=== PATIENT | male | born 1950 | race Caucasian/White ===

== ENCOUNTER 2017-09-04 14:13 | Inpatient (IN) | payer MEDICARE, MEDICAID ==
[2017-09-04] VITALS (25 sets, daily range): BP systolic 72–125; BP diastolic 34–76
[~2017-09-04] VITALS: Ht 185.4 cm; Wt 74.6 kg
[~2017-09-04 14:13] MED LIST changes: -ASPI-484 PO; -ATOR20TA PO; -CLOP75TA52 PO; -LEVAQUIN 150 ML IV ONE; -MIRT15TA PO; -NS 1000ML 1,000 ML ONE; -SOTA80TA PO
--- NOTE | 2017-09-04 14:27 | NUR ---
ARRIVAL PATIENT ARRIVED TO ED4 VIA GURNEY BY [facility], EMS CALLED TO [facility] FOR ALOC AND LOW OXYGEN, ON THEIR ARRIVAL SAT IN THE 70'S, INITIATED A 20G IV TO LEFT FOREARM INFUSING NORMAL SALINE, BREATHING TREATMENT GOING ON ARRIVAL, NO DISTRESS NOTED
[2017-09-04 14:42] LABS: ABG PCO2 27.4 mmHg (35.0-45.0); ABG PH 7.441 (7.350-7.450); BE(B) -4.4 mmol/L (-2.0-2.0); HCO3act 18.2 mmol/L (22.0-26.0); pO2 50.5 mmHg (75.0-100.0)
--- NOTE | 2017-09-04 14:42 | PCM.EKG ---
[facility] Test Date: 2017-09-04 Test Time: 14:40:59 Pat Name: MOLINA BURK Department: Room: Gender: M Post Secondary Professional: RT : 1950 Requested By: PILI BULLOCK Order Number: [id number] Reading MD: Measurements Intervals [place] Rate: 108 P: CA: QRS: 110 QRSD: 66 T: 75 QT: 372 QTc: 498 Interpretive Statements Undetermined rhythm Otherwise normal ECG No previous ECG available for comparison Please click the below link to view image of tracing.
--- NOTE | 2017-09-04 14:45 | ER.PDOC ---
General Chief Complaint: Dyspnea/Respdistress Stated Complaint: ALOC Time seen by MD: 14:41 Source: EMS, senior care records Exam Limitations: clinical condition History of Present Illness Initial Comments Vomited last night and today having difficulty breathing and confusion. Character of AMS: disoriented, confused Context: senior care resident Usually: orientedx3 Associated Symptoms: trouble breathing Allergies: Coded Allergies: No Known Drug Allergies (Verified Allergy, Unknown, 06/27/16) Home Meds Reported Medications Sotalol Hcl (SOTALOL) 80 Mg Tablet, 1 TAB PO BID, #180 TAB 3 Refills 09/04/17 Mirtazapine (REMERON) 15 Mg Tablet, 1 TAB PO HS, #30 TAB 09/04/17 Clopidogrel Bisulfate (PLAVIX) 75 Mg Tablet, 1 TAB PO DAILY, #90 TAB 3 Refills 09/04/17 Atorvastatin 20MG (LIPITOR 20MG) 20 Mg Tablet, 1 TAB PO DAILY, #90 TAB 3 Refills 09/04/17 Aspirin (ASPIR 81) 81 Mg Tablet.dr, 1 TAB PO DAILY, #90 TAB 3 Refills 09/04/17 Thiamine Hcl (THIAMINE HCL) 100 Mg Tablet, 100 MG PO DAILY, TABLET 06/26/16 Folic Acid (FOLIC ACID) 1 Mg Tablet, 1 TAB PO DAILY, #90 TAB 1 Refill 06/26/16 Donepezil Hcl (DONEPEZIL HCL) 10 Mg Tablet, 1 TAB PO DAILY, #90 TAB 1 Refill 06/26/16 Cholestyramine/Aspartame (CHOLESTYRAMINE LIGHT PACKET) 4 Gm Packet, 4 GM PO DAILY, PACKET 06/26/16 Calcium Carbonate/Vitamin D3 (CALCIUM 500 + VIT D CAPLET) 1 Each Tablet, 1 EACH PO DAILY, TABLET 12/01/14 Primidone (PRIMIDONE) 250 Mg Tablet, 250 MG PO BID, TABLET 12/01/14 Levetiracetam (KEPPRA) 500 Mg Tablet, 500 MG PO TID, TABLET 12/01/14 Discontinued Reported Medications Quetiapine Fumarate (SEROQUEL) 50 Mg Tablet, 2 TAB PO HS, #30 TAB 2 Refills 06/26/16 Ferrous Sulfate (IRON) 325 Mg Capsule.er, 325 MG PO DAILY 06/26/16 Duloxetine Hcl (CYMBALTA) 30 Mg Capsule.dr, 1 CAP PO DAILY, #30 CAP 5 Refills 06/26/16 Lorazepam (ATIVAN) 0.5 Mg Tablet, 0.5 MG PO Q4 Y for ANXIETY, TABLET 12/01/14 Past Medical History Medical History: cardiac problems, high cholesterol, hypertension Surgical History: no surgical history Review of Systems Constitutional: no symptoms reported Ears, Nose, Mouth, Throat: no symptoms reported Respiratory: see HPI Cardiovascular: no symptoms reported Gastrointestinal: no symptoms reported Psychiatric/Neurological: see HPI All Other Systems: Reviewed and Negative Physical Exam General Appearance: alert, no distress HEENT: no apparent trauma, EOM's intact, no nystagmus, PERRL, ENT inspection nml, pharynx nml, airway intact Neuro/Psych: disoriented to place, disoriented to time Cranial Nerves: nml as tested Peripheral Exam: motor nml, sensation nml, reflexes nml Neck: supple, non-tender, no carotid bruit Respiratory: rales CVS: reg rate & rhythm, heart sounds nml Abdomen: non-tender, no organomegaly, no distention Skin: color nml, no rash, warm/dry Extremities: non-tender, nml ROM, no pedal edema Results/Orders Results/Orders Laboratory Tests Test 09/04/17 14:31 09/04/17 14:38 09/04/17 15:15 09/04/17 15:35 Blood Gas Sample Site RT RADIAL ARTERY Blood Gas pH 7.441 (7.350-7.450) Blood Gas PCO2 27.4 mmHg (35.0-45.0) Blood Gas PO2 50.5 mmHg (75.0-100.0) Blood Gas HCO3 18.2 mmol/L (22.0-26.0) Blood Gas Base Excess -4.4 mmol/L (-2.0-2.0) Douglas Test POSITIVE Arterial Blood Oxygen Saturation 85.6 % (95-) Deoxyhemoglobin 14.2 % (0.2-0.6) Carboxyhemoglobin 1.2 % (0.5-1.5) Methemoglobin 0.4 % (0.2-0.6) Total Hemoglobin 13.9 % (13.5-17.5) Total Oxygen Concentration 16.4 % (13.5-17.5) Lactic Acid (Blood Gas) 2.2 MMOL/L (0.5-1.0) Blood Gas Temperature 37 FiO2 36 % (20-101) Bicarbonate 19.1 mmol/L (23-27) White Blood Count 11.0 10^3/uL (4.5-11.0) Red Blood Count 3.41 10^6/uL (4.50-5.90) Hemoglobin 12.2 g/dL (13.9-16.3) Hematocrit 36.2 % (37.0-53.0) Mean Corpuscular Volume 106.2 fL (78-100) Mean Corpuscular Hemoglobin 35.8 pg (26-34) Mean Corpuscular Hemoglobin Concent 33.7 g/dL (33-37) Red Cell Distribution Width 13.1 % (11.5-14.5) Platelet Count 226 10^3/uL (150-400) Mean Platelet Volume 9.1 fL (7.8-11.0) Neutrophils (%) (Auto) 77.2 % (41.0-85.0) Lymphocytes (%) (Auto) 20.1 % (24.0-44.0) Monocytes (%) (Auto) 2.1 % (5.0-12.0) Neutrophils # (Auto) 8.5 10^3/uL (1.8-7.7) Lymphocytes # (Auto) 2.2 10^3/uL (1.0-4.8) Monocytes # (Auto) 0.2 10^3/uL (0.3-0.8) Absolute Immature Granulocyte (auto 0.04 10^3 u/L (0-2) Eosinophils % 0.0 % (0.0-5.0) Basophils % 0.2 % (0.0-0.2) Basophils # 0.0 10^3/uL (0.0-0.1) Eosinophil Count 0.0 10^3/uL (0.0-0.2) D-Dimer 3.40 mg/L (0.19-0.49) Percent Immature Gran (Cell Imm) 0.40 % (0.00-0.50) Sodium Level 135 mmol/L (132-145) Potassium Level 4.4 mmol/L (3.6-5.2) Chloride Level 101.0 mmol/L (96-109) Carbon Dioxide Level 21.9 mmol/L (20.0-32) Anion Gap 16.5 Blood Urea Nitrogen 21 mg/dL (7-18) Creatinine 2.33 mg/dL (0.59-1.40) Estimated GFR () 34.2 (>/=60) BUN/Creatinine Ratio 9.0 Glucose Level 91 mg/dL (70-110) Calcium Level 8.3 mg/dL (8.4-10.5) Total Bilirubin 0.5 mg/dL (0.2-1.0) Aspartate Amino Transf (AST/SGOT) 64 U/L (0-35) Alanine Aminotransferase (ALT/SGPT) 38 U/L (12-78) Alkaline Phosphatase 81 U/L (50-136) Total Creatine Kinase 1445 U/L (39-308) Creatine Kinase MB 1.4 ng/mL (0.5-3.6) Troponin I 0.03 ng/mL (0.00-0.05) Pro-B-Type Natriuretic Peptide 7421 pg/mL (0-125) Total Protein 7.3 g/dL (6.4-8.2) Albumin 2.6 g/dL (3.4-5.0) Globulin 4.7 Differential Total Cells Counted 100 #CELLS Segmented Neutrophils 35 % (31-76) Band Neutrophils 36 % (2-6) Lymphocytes 25 % (25-36) Monocytes 4 % (3-9) Platelet Estimate ADEQUATE Platelet Morphology NORMAL Test 09/04/17 15:37 09/04/17 16:41 Influenza Virus Type A Antibody NEGATIVE (NEG) Influenza Virus Type B Antibody NEGATIVE (NEG) Prothrombin Time 10.4 SEC (9.8-11.9) Prothrombin Time INR (Non-Therap) 1.0 Activated Partial Thromboplast Time 30.5 SEC (24.67-30.72) Administered Medications Medications (Trade) Dose Ordered Sig/Edwin Route PRN Reason Start Time Stop Time Status Last Admin Dose Admin Sodium Chloride 1,000 ml @ 1,200 mls/hr Q50M STAT IV 09/04/17 15:19 09/04/17 16:08 DC 09/04/17 15:20 EKG/XRAY/CT/US EKG: NSR (sinus tachycardia) XRAY: chest (Right airspace disease) Departure Time of Disposition: 17:12 Disposition: 09 ADMITTED INPATIENT Impression: Primary Impression: Acute respiratory failure Additional Impressions: Sepsis Pneumonia Condition: Critical Referrals: BHAVNA GRIMES MD (PCP) PRIMARY CARE PROVIDER Comments Admitted to Dr. Bustamante Duration or Time Spent with Pa: 120 mins Critical Care Note Total Time (mins): 120 Problem Qualifiers Primary Impression: Acute respiratory failure Respiratory failure complication: hypoxia Qualified Codes: J96.01 - Acute respiratory failure with hypoxia Additional Impressions: Sepsis Sepsis type: sepsis due to unspecified organism Qualified Codes: A41.9 - Sepsis, unspecified organism Pneumonia Pneumonia type: due to unspecified organism Laterality: right Lung location : unspecified part of lung Qualified Codes: J18.9 - Pneumonia, unspecified organism ARA,PILI Clark MD Sep 04, 2017 14:44
--- NOTE | 2017-09-04 14:45 | NUR ---
NORMAL SALINE NORMAL SALINE BOLUS INITIATED BY EMS FINISHED AT THIS TIME.
--- NOTE | 2017-09-04 14:47 | NUR ---
CAT SCAN PATIENT TO CAT SCAN VIA GURALICE IRENE FROM RADIOLOGY.
[2017-09-04 14:56] LABS: BASOPHIL % 0.2 % (0.0-0.2); HEMOGLOBIN 12.2 g/dL (13.9-16.3); LYMPHOCYTES # 2.2 10^3/uL (1.0-4.8); LYMPHOCYTES % 20.1 % (24.0-44.0); MEAN CELL HGB 35.8 pg (26-34); MEAN CELL HGB CONCENTRATION 33.7 g/dL (33-37); MEAN CORP VOLUME 106.2 fL (78-100); MEAN PLATELET VOLUME 9.1 fL (7.8-11.0); MONOCYTES # 0.2 10^3/uL (0.3-0.8); MONOCYTES % 2.1 % (5.0-12.0); NEUTROPHIL # 8.5 10^3/uL (1.8-7.7); NEUTROPHILS % 77.2 % (41.0-85.0); RED CELL DISTRIBUTION WIDTH 13.1 % (11.5-14.5)
--- NOTE | 2017-09-04 15:11 | NUR ---
CAT SCAN PATIENT BACK FROM CAT SCAN.
[2017-09-04] MEDS ORDERED: NS 1000ML 1,000 ML ONE (15:13)
[2017-09-04] MEDS ORDERED: NS 1000ML 1,000 ML IV STA ×2 (15:19→17:16)
[2017-09-04 15:21] LABS: CALCIUM 8.3 mg/dL (8.4-10.5); CARBON DIOXIDE 21.9 mmol/L (20.0-32)
[2017-09-04] MEDS ORDERED: CLOP75TA52 PO (15:26)
[2017-09-04] MEDS ORDERED: MIRT15TA PO (15:26)
[2017-09-04] MEDS ORDERED: ASPI-484 PO (15:26)
[2017-09-04] MEDS ORDERED: ATOR20TA PO (15:26)
[2017-09-04] MEDS ORDERED: SOTA80TA PO (15:26)
[2017-09-04 15:35] LABS: BAND NEUTROPHILS 36 % (2-6); LYMPHOCYTE 25 % (25-36); MONOCYTE 4 % (3-9); SEGMENTED NEUTROPHILS 35 % (31-76)
--- NOTE | 2017-09-04 15:36 | DIREP ---
PROCEDURE:CT HEAD OR BRAIN W/O CONTRAST COMPARISON:[facility], CT, CT HEAD BRAIN W/O CONTRAST, 06/25/2016, 11:16 PM. INDICATIONS:AMS TECHNIQUE:CT images were created without intravenous contrast. FINDINGS: VENTRICLES:The ventricles are normal in size and configuration. CEREBRUM:Within the right frontal lobe there is a focal area demonstrating loss of perez-white differentiation either related to volume averaging through sulcus or cortical infarction. Encephalomalacia noted in the bifrontal region is well as anterior left temporal lobe stable from prior. CEREBELLUM:Negative. BRAINSTEM:Negative. BASAL CISTERNS:Negative. HEMORRHAGE:No MASS LESION:No ACUTE INFARCT:No SKULL:Normal. SINUSES:Left maxillary sinus partially visualized with mucosal thickening and/or fluid. Mucosal thickening sphenoid sinus. OTHER:Intracranial carotid siphon atherosclerotic calcifications. CONCLUSION: 1. Probable artifact involving the right frontal cortex, less likely this reflects cortical stroke. MRI of the brain could be obtained to differentiate. 2. 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 3. No intracranial hemorrhage. 4. Paranasal sinus disease. Dictated by: Johnson Quiñonez M.D. on 09/04/2017 at 03:31 PM
--- NOTE | 2017-09-04 15:47 | DIREP ---
PROCEDURE:CHEST 1 VIEW COMPARISON:[facility], CR, XRAY CHEST SINGLE VW, 06/25/2016, 10:23 PM. INDICATIONS:Dyspnea FINDINGS: LUNGS/PLEURA:Patchy airspace disease noted in the right lung base. Background of interstitial scarring noted. VASCULATURE:Normal. Unremarkable pulmonary vasculature. CARDIAC:Normal. No cardiac silhouette abnormality or cardiomegaly. MEDIASTINUM:Normal. No visible mass or adenopathy. BONES:Normal. No fracture or visible bony lesion. OTHER:Negative. CONCLUSION: 1. Right basilar airspace disease. 2. Interstitial scarring in the lungs. Dictated by: Johnson Quiñonez M.D. on 09/04/2017 at 03:45 PM
--- NOTE | 2017-09-04 16:31 | NUR ---
RAMIREZ DOCTOR ARA DISCUSSING PATIENT CARE WITH DOCTOR GUZMÁN
--- NOTE | 2017-09-04 16:58 | NUR ---
[facility] NURSING STAFF TO PATIENTS ROOM, PATIENT REFUSED CATHETER, DOCTOR ARA TO ROOM AND PATIENT CONTINUED TO REFUSED CATHETER, DOCTOR ARA STATES JUST DOCUMENT IN THE CHART.
--- NOTE | 2017-09-04 17:15 | PRM.ACF1 ---
Date and Time Date and Time Time: 17:15 Admission Criteria Forms RESPIRATORY FAILURE GRG ( Place 'X' for any and all applicable criteria): Hospital admission is needed for appropriate care of the patient because of acute respiratory failure or insufficiency as indicated by 1 or more of the following (1)(2)(3)(4)(5)(6)(7)(8 ): [ ]I. Mechanical ventilation needed (acute invasive or noninvasive) [ ]II. Severe ventilation deficit as indicated by 1 or more of the following ( 9) [ ]a) Uncompensated Respiratory acidosis (pH < 7.35 and PaCO2 > 40 mmHg (5.3 kPa)) [ ]b) Airflow measurements < 25% of predicted (eg, PEFR < 100 L/min) [ ]c) FVC < 15 mL/kg of ideal body weight, or 50% decrease in vital capacity from baseline [ ]III. Noncardiac pulmonary edema not resolving with rapid emergency treatment (8) [ ]IV. Severe respiratory distress as indicated by 1 or more of the following: [ ]a) Severe tachypnea (respiratory rate greater than 30, greater than 45 for 6-month-old, greater than 60 for ) [x ]b) Severe hypoxemia (partial pressure of oxygen less than 50 mm Hg (6.7 kPa) on greater than 50% oxygen or partial pressure of oxygen to FIO2 ratio less than 200) [ ]c) Mental status deterioration from respiratory disease [ ]V. Airway obstruction or inadequate protection [A](10)(11) The original [employer] content created by [employer] has been revised. The portions of the content which have been revised are identified through the use of italic text, and [employer] has neither reviewed nor approved the modified material. All other unmodified content is copyright [employer]. Please see references footnoted in the original [employer] edition 2014 PILI BULLOCK MD Sep 04, 2017 17:15
--- NOTE | 2017-09-04 17:15 | NUR ---
sister SISTER LIVES IN [place] AND LEFT NUMBER
[2017-09-04] MEDS ORDERED: LEVAQUIN 150 ML IV STA (17:16)
--- NOTE | 2017-09-04 17:35 | NUR ---
Arrival Patient arrived on unit via stretcher to ICU 4. Report received from DENIS Sabillon. Assumed care of patient. Offered patient fluids and snacks. Educated patient on use of call light, pt returned demonstration. Will continue to monitor. Call light within reach.
--- NOTE | 2017-09-04 17:58 | NUR ---
Temperature Notified Dr. Bustamante of patients temperature of 100.8. New order received.
--- NOTE | 2017-09-04 18:22 | NUR ---
Dr. Robby Bustamante at bedside. New orders received.
[2017-09-04] MEDS: NS 1000ML 1,000 ML IV SCH ×2 (18:30→22:41)
[2017-09-04] MEDS ORDERED: ZOFRAN IV PRN (18:30)
[2017-09-04] MEDS ORDERED: DILAUDID IV PRN (18:30)
[2017-09-04] MEDS ORDERED: VENTOLIN IH PRN (18:30)
--- NOTE | 2017-09-04 18:45 | NUR ---
Received bedside report from AM nurse. Assumed care.
[2017-09-04] MEDS: LOVENOX SQ SCH (18:54)
[2017-09-04] MEDS: NICOTINE 14MG PATCH TD SCH (18:54)
[2017-09-04] MEDS: TYLENOL PO PRN (18:55)
--- NOTE | 2017-09-04 19:20 | NUR ---
Pt has not urinated since arriving to hospital. Pt denies the need to urinate. Pt agreed to try to pee. Assisted pt with urinal. After 30 seconds or so pt asked "what are we doing?" I reminded the pt he was trying to pee. Pt states "I don't have to pee." Pt refuses to allow me to remove his brief. Will continue to monitor.
--- NOTE | 2017-09-04 19:30 | NUR ---
Bed alarm turned on.
--- NOTE | 2017-09-04 20:00 | NUR ---
Initial assessment complete as charted. Pt only oriented to self. Pt does not under why he cannot get in his w/c and go outside to smoke. Pt can not understand that he cannot have another blanket because he has a fever. Pt very upset about this. O2 @ 2LNC. Lungs sound course throughout. Pt coughed a small amount of thick clear sputum into a Kleenex. Pt making a humming sound with exhaling. Pt stops the humming when he talks or sees someone in the room. Pt has not urinated since arriving on the unit. Pt refuses to use urinal and refuses to have a guerrero cath inserted. BS active X4. Pt cannot tell me when his LBM was. Pt has a brief on and refuses to allow me to remove it. IV to L FA 20gg unremarkable with NS @ 125mL/hr infusing. Pt denies pain and needs. Call light within reach.
--- NOTE | 2017-09-04 20:54 | NUR ---
RT in room to draw ABG.
--- NOTE | 2017-09-04 21:00 | NUR ---
Pt denies the need to urinate. Pt refuses to try to pee. Pt refuses to have a guerrero cath inserted. Asked him why he did not want it, he responded "I just don't." I explained exactly what a guerrero was. Pt states "No way." Will continue to monitor. Call light within reach.
[2017-09-04 21:02] LABS: ABG PCO2 24.7 mmHg (35.0-45.0); ABG PH 7.449 (7.350-7.450); BE(B) -5.7 mmol/L (-2.0-2.0); HCO3act 16.7 mmol/L (22.0-26.0); pO2 59.8 mmHg (75.0-100.0)
--- NOTE | 2017-09-04 21:06 | NUR ---
ABG results called to Dr Maria (covering for Dr Bustamante). Also reported trend of low BP. RBTO to given NS bolus now and he will come and see the pt.
[2017-09-04] MEDS: DUONEB 0.5 MG-3 MG/3 ML SOLN IH SCH (21:13)
--- NOTE | 2017-09-04 21:22 | NUR ---
NS bolus started to L FA 20gg. IV site unremarkable.
[2017-09-04] MEDS ORDERED: NS 1000ML 1,000 ML IV ONE (21:30)
--- NOTE | 2017-09-04 21:38 | NUR ---
Dr Maria at bedside. New orders received.
--- NOTE | 2017-09-04 21:43 | NUR ---
Pt denies the need to urinate to Dr Maria. Pt refuses guerrero cath to Dr Maria.
[2017-09-04] MEDS: PEPCID IV SCH (21:58)
--- NOTE | 2017-09-04 22:10 | NUR ---
Lab in room.
[2017-09-04 22:30] LABS: CALCIUM 7.6 mg/dL (8.4-10.5); CARBON DIOXIDE 20.9 mmol/L (20.0-32)
--- NOTE | 2017-09-04 22:42 | NUR ---
Pt attempted to eat a criss cracker and became choked. Pt vomited approx 100mL. I used yonker connected to suction everything out of pt's mouth. Complete linen change and partial bed bath done. Pt still refuses guerrero cath insertion. Pt denies pain and other needs. Call light within reach.
--- NOTE | 2017-09-04 23:15 | NUR ---
Dr Maria called with lab results and that RR has increased to 28-34 and lungs sound wet compared initial assessment. RBTO to order a stat CK on blood in lab. And to call him with that result and if any other change in pt condition.
[2017-09-05] VITALS (97 sets, daily range): BP systolic 86–174; BP diastolic 42–108
--- NOTE | 2017-09-05 00:08 | NUR ---
Dr Maria called about CK = 1089. No new orders. Dr Maria states he has given Dr Bustamante an update on the pt and Dr Bustamante will be taking back over.
--- NOTE | 2017-09-05 01:26 | NUR ---
Pt removed O2 sat monitor off of his finger stating "I'm going outside to smoke." Reminded the pt he was in [facility] in the ICU. Pt began yelling and cussing at me. I told him no he will not yell and cuss at me. Replaced O2 sat probe to finger. Pt denies pain and other needs. As I was walking out of the room the pt yelled "Fuck you!" Call light within reach.
--- NOTE | 2017-09-05 01:31 | NUR ---
O2 sat = 85% on 4LNC. Good pleth noted on monitor. Applied new O2 sat probe to a different finger. Again good pleth with O2 sat 85%. Repositioned pt in bed. No change. Called RT. Will continue to monitor.
--- NOTE | 2017-09-05 01:41 | NUR ---
RT at bedside.
--- NOTE | 2017-09-05 01:57 | NUR ---
RT humidified O2, increased pt to 6LNC and changed out O2 sensor cable. O2 sat = 90%. Will continue to monitor.
--- NOTE | 2017-09-05 02:34 | NUR ---
Pt laying in bed awake. Pt denies the need to use urinal and refuses to have Unger cath inserted. Pt states " I will pee in my diaper when I'm ready." Pt denies pain and needs. Call light within reach. Bed alarm on.
--- NOTE | 2017-09-05 03:25 | NUR ---
RT and lab in room to draw blood.
--- NOTE | 2017-09-05 03:40 | NUR ---
Pt laying in bed awake making a very loud noise. It sounded like he was clearing his throat and growling. I asked the pt is I needed to suck something out of his mouth. The pt says no he's fine. I ask what that noise is that he is making. Pt sates "I'm talking." Pt denies pain and needs. Call light within reach.
[2017-09-05 03:44] LABS: BASOPHIL % 0.2 % (0.0-0.2); EOSINOPHIL % 0.1 % (0.0-5.0); HEMOGLOBIN 10.9 g/dL (13.9-16.3); LYMPHOCYTES % 24.8 % (24.0-44.0); MEAN CELL HGB 36.8 pg (26-34); MEAN CELL HGB CONCENTRATION 34.2 g/dL (33-37); MEAN CORP VOLUME 107.8 fL (78-100); MEAN PLATELET VOLUME 9.4 fL (7.8-11.0); MONOCYTES # 0.1 10^3/uL (0.3-0.8); MONOCYTES % 1.7 % (5.0-12.0); NEUTROPHIL # 5.9 10^3/uL (1.8-7.7); RED CELL DISTRIBUTION WIDTH 13.6 % (11.5-14.5)
[2017-09-05] MEDS: DUONEB 0.5 MG-3 MG/3 ML SOLN IH SCH ×4 (03:44→21:27)
--- NOTE | 2017-09-05 03:52 | NUR ---
Pt yelling "Get out of here! Go away! I said get the fuck out!" I went in the room and asked if the pt was okay. Pt states "Turn off my TV and tell that bitch to get out and leave me alone." I explained to the pt that his TV was off and the only people in his room were he and I. Pt yelled at me " You're lying. She's right there (pointing at wall at end of bed). And turn off my TV." I turned TV on and then back off so pt could see the difference. Pt agreed that the TV was now off. But he was convinced there was a woman at the end of his bed talking to him. He wanted her out. I spoke to nothing and said "please get out of Mr Alfaro' room." Pt moved his head like he was watching someone walk out of the room then turned to me and said "Thank you." Pt denies pain and needs, Call light within reach.
[2017-09-05 04:09] LABS: CALCIUM 7.9 mg/dL (8.4-10.5); CARBON DIOXIDE 17.6 mmol/L (20.0-32)
--- NOTE | 2017-09-05 04:20 | NUR ---
Pt denies the need to use urinal. Bladder not distended when palpitated. Pt refuses to have guerrero cath inserted. Pt denies pain and needs. Call light within reach.
--- NOTE | 2017-09-05 05:12 | NUR ---
Pt laying in bed yelling. When asked what he needed pt states "I need new underwears. I peed in these." Pt started pulling brief off. I told pt just a minute let me get supplies. Pt says okay.
--- NOTE | 2017-09-05 05:20 | NUR ---
Urine is tea colored and has a foul smell to it.
[2017-09-05] MEDS: NS 1000ML 1,000 ML IV SCH ×3 (05:39→20:55)
--- NOTE | 2017-09-05 05:51 | NUR ---
Pt ended up getting a bed bath with a complete linen and gown change. Pt was incontinent while I was rolling him in bed. Pt demanded a brief be put on him. Pedi urine collection bag placed around penis. UA still needs to be collected. Pt refused to have HOB elevated. Pt denies pain and needs. Call light within reach. Bed alarm on.
--- NOTE | 2017-09-05 06:52 | NUR ---
Report given to AM nurse. Relinquished care.
--- NOTE | 2017-09-05 06:53 | NUR ---
REPORT RECEIVED FROM EVELYNE BARRIOS. ASSUMED CARE OF PATIENT.
[2017-09-05 07:04] LABS: BAND NEUTROPHILS 19 % (2-6); BASOPHIL 1 % (0-2); EOSINOPHIL 1 % (1-4); LYMPHOCYTE 24 % (25-36); MONOCYTE 4 % (3-9); SEGMENTED NEUTROPHILS 51 % (31-76)
[2017-09-05 07:05] LABS: TOXIC GRANULATION 2+ (NEGATIVE)
--- NOTE | 2017-09-05 08:05 | NUR ---
PATIENT SAT UP TO EAT BREAKFAST. UNABLE TO TOLERATE. EXPECTORATED PROFUSE AMOUNTS OF YELLOW FOAMY PHLEGM. 02 SAT% DROPPED TO 78%. FEEDING DISCONTINUED. PATIENT SUCTIONED AND CLEANED. O2 SAT% INCREASED TO 88%.
--- NOTE | 2017-09-05 08:10 | NUR ---
PATIENT REPORTS WET BRIEF. BRIEF CHANGED AND PATIENT CLEANED WITH PAD AND GOWN CHANGE.
[2017-09-05 08:16] LABS: BILIRUBIN,URINE NEGATIVE (NEGATIVE); UROBILINOGEN,URINE NORMAL (NEGATIVE)
[2017-09-05] MEDS: NICOTINE 14MG PATCH TD SCH (08:34)
[2017-09-05] MEDS: PEPCID IV SCH ×2 (08:34→20:57)
[2017-09-05 08:55] LABS: UA COLOR YELLOW (YELLOW)
[2017-09-05 08:58] LABS: APPEARANCE,URINE CLOUDY (CLEAR)
[2017-09-05] MEDS: PREVALITE PACKET PO SCH (09:00)
[2017-09-05] MEDS: OYSTER SHELL 500-VIT D3 200 TB PO SCH (09:00)
[2017-09-05] MEDS: THIAMINE HCL PO SCH (09:00)
[2017-09-05] MEDS: KEPPRA PO SCH ×3 (09:00→21:00)
[2017-09-05] MEDS: ASPIRIN EC PO SCH (09:00)
[2017-09-05] MEDS: PLAVIX PO SCH (09:00)
[2017-09-05] MEDS: FOLIC ACID PO SCH (09:00)
[2017-09-05] MEDS: ARICEPT PO SCH (09:00)
[2017-09-05] MEDS: LIPITOR PO SCH (09:00)
[2017-09-05] MEDS: BETAPACE PO SCH ×2 (09:00→21:00)
[2017-09-05] MEDS: MYSOLINE PO SCH ×2 (09:00→21:00)
--- NOTE | 2017-09-05 09:04 | NUR ---
DR. GUZMÁN AT BEDSIDE SWALLOW EVALUATION TO BE ORDERED BY DR. GUZMÁN.
--- NOTE | 2017-09-05 11:45 | NUR ---
MALACHI CALLAWAY AT BEDSIDE FOR SPEECH EVALUATION RECOMMENDATION FROM ST TO KEEP PATIENT NPO AND BARIUM SWALLOW. DR. GUZMÁN NOTIFIED. Addendum: 09/05/17 at 1230 by Wade Bautista RN - RECORDS OFFICER CORRECTION: MALACHI GO, SATNAM KILPATRICK.
--- NOTE | 2017-09-05 13:45 | HPH ---
ADMIT DATE: 09/04/2017 CHIEF COMPLAINT: Shortness of breath, altered mental status. HISTORY OF PRESENT ILLNESS: The patient is a 67-year-old man with a past medical history significant for advanced dementia who is a [facility] a pen[facility]. He was sent by EMS to the ER due to altered level of consciousness and dyspnea. He has a history of coronary artery disease, seizure disorder, hypertension, and hyperlipidemia. There have been no recent medication changes. There is no evidence of trauma. The patient is able to talk, but was oriented only x 2 at time of exam. There have been no recent medication changes. No other new symptoms reported. Upon arrival to Emergency Room, he had some tachycardia, tachypnea and only mildly decreased O2 saturation, initially 89% on room air, but progressively more hypoxic and borderline hypotensive. PAST MEDICAL HISTORY: Includes coronary artery disease, hyperlipidemia, hypertension, seizure disorder, dementia and iron deficiency anemia. PAST SURGICAL HISTORY: He has had heart catheterization. ALLERGIES: NO KNOWN DRUG ALLERGIES. HOME MEDICATIONS: List from the penitentiary includes aspirin 81 mg daily, atorvastatin 20 mg daily, calcium plus D daily, cholestyramine 4 grams daily, Plavix 75 mg daily, donepezil 10 mg daily, folic acid 1 mg daily, Keppra 500 mg 3 times a day, mirtazapine 15 mg at night, primidone 250 mg twice a day, sotalol 80 mg twice a day and thiamine 100 mg daily. SOCIAL HISTORY: Lives in a penitentiary. No current alcohol, tobacco or illicit drug use history. FAMILY HISTORY: Negative for early coronary artery disease or diabetes. REVIEW OF SYSTEMS: CARDIAC: Denies any chest pain or shortness of breath. PULMONARY: No cough, sputum production or pleuritic chest pain. GASTROINTESTINAL: No nausea, vomiting, diarrhea or constipation. All else negative in 10 point review of system except as in HPI. PHYSICAL EXAMINATION: VITAL SIGNS: Upon arrival to the ER, height 185.4 cm, weight 64 kg, BMI of 18.6, temperature 98.2, pulse of 110, respiratory rate 24, blood pressure 116/73 and O2 saturations were 92% with a nonrebreather from the ER documentation. GENERAL: He is alert, on nasal cannula at time of exam, chronic ill-appearing gentleman. HEENT: Pupils equal, round, reactive to light. Sclerae are anicteric. Oropharynx is clear. Mucous membranes are slightly dry. NECK: Supple, no lymphadenopathy. CARDIOVASCULAR: At time of exam, is tachycardic, regular rhythm. LUNGS: Decreased at the bases bilaterally, some upper respiratory congestion, otherwise no wheezing. ABDOMEN: Soft. Bowel sounds are present, nontender to palpation. EXTREMITIES: No cyanosis, clubbing or significant edema. NEUROLOGIC: Grossly nonfocal. INITIAL LABORATORY DATA: CBC: White count 11.0, hemoglobin 12.2 and platelets 226. Differential: 77% neutrophils, 20% lymphocytes, 2% monocytes. Sodium 135, potassium 4.4, chloride 101, CO2 is 22, BUN is 21, creatinine 2.33, glucose is 91, calcium is 8.3, total bilirubin 0.5, AST 64, ALT is 38, alkaline phosphatase 81, total CK is 1445, CK-MB is 1.4, troponin I 0.03, proBNP is 7421, total protein 7.3 and albumin 2.6. PT of 10.4, PTT 30.5. Initial blood gas done in the Emergency Room, pH is 7.44, pCO2 is 27.4, pO2 is 50.5, base excess negative 4.4 with a lactate of 2.2. IMAGING STUDIES: Chest x-ray performed in the Emergency Room reveals right lower lobe consolidation. CT head shows chronic, involutional changes with bifrontal and left temporal encephalomalacia. ASSESSMENT AND PLAN: The patient is a 67-year-old man here with significant history of advanced dementia, here with aspiration pneumonia, sepsis secondary to aspiration pneumonia with acute hypoxemic respiratory failure with signs of dysphagia. 1. We will continue his cardiovascular medications. 2. IV fluid hydration. 3. Continue IV antibiotics started in the Emergency Room with IV Levaquin. 4. DVT prophylaxis with Lovenox. 5. Appropriate p.r.n. pain and nausea medications. 6. Continue his Keppra at current dose. Time spent with the patient on 09/04/2017 is 1 hour. This plan was discussed with the patient. We will try to attempt to contact his primary decision maker, which is possibly his sister. Brennen Bustamante MD DR: TED/gail JOB# [id number]
--- NOTE | 2017-09-05 14:13 | DIREP ---
PROCEDURE:US KIDNEYS-BILAT COMPARISON:None. INDICATIONS:Acute Renal Insufficiency TECHNIQUE:Ultrasound examination was performed of the kidneys and bladder. FINDINGS: RIGHT KIDNEY:9.91 cm x 5.48 cm x 5.25 cm LEFT KIDNEY:9.44 cm x 4.53 cm x 6.79 cm RIGHT KIDNEY: Normal. No hydronephrosis. LEFT KIDNEY: Normal. No hydronephrosis. BLADDER:Normal. OTHER:A moderate amount of ascites is identified in the abdomen. CONCLUSION:Normal bilateral renal sonography with no mass, hydronephrosis or cortical thinning. Incidental note is made of a moderate amount of ascites in the abdomen. No other findings. Dictated by: Buck Chase M.D. on 09/05/2017 at 02:10 PM
--- NOTE | 2017-09-05 15:03 | NUR ---
DISCHARGE PLANNING: PT IS A ASSISTED RESIDENT AT [facility]. PT HAS DME IN PLACE [place]. PT WILL GO BACK UPON DISCHARGE. SS WILL FOLLOW UP WITH PT'S SISTER REGARDING DISCHARGE PLANNING AND PHYSICIAN RECOMMENDATIONS. SS TO CONTINUE TO FOLLOW.
--- NOTE | 2017-09-05 18:44 | NUR ---
REPORT GIVEN TO ONCOMING SHIFT. RELINQUISHED CARE OF PATIENT.
--- NOTE | 2017-09-05 19:00 | NUR ---
RECEIVED PATIENT PATIENT IS COMFORTABLE, ALERT, COHERENT, AND AFEBRILE. INTRODUCED SELF TO PATIENT. BRIEFLY DISCUSSED PLAN OF CARE THIS SHIFT. ASSUMED CARE. SEE ASSESSMENT.
[2017-09-05] MEDS ORDERED: TYLENOL RC ONE (20:26)
--- NOTE | 2017-09-05 20:35 | NUR ---
TSB AND OTHER COOLING MEASURES REFUSED BY PATIENT
--- NOTE | 2017-09-05 20:42 | NUR ---
TORADOL DR GUZMÁN NOTIFIED RE: PATIENT'S FEVER. RECEIVED ORDER FOR TORADOL 15 MG IV Q4 PRN FOR PAIN OR FEVER. RBTO
[2017-09-05] MEDS: LOVENOX SQ SCH (20:57)
[2017-09-05] MEDS: TORADOL IV PRN (20:59)
[2017-09-05] MEDS: REMERON PO SCH (21:00)
--- NOTE | 2017-09-05 23:30 | NUR ---
TYLENOL SUPP. INFORMED DR GUZMÁN THAT PATIENT IS STILL FEBRILE AT THIS TIME. RECEIVED ORDER FOR TYLENOL SUPP 650 MG Q4 PRN FOR FEVER. RBTO.
[2017-09-05] MEDS: TYLENOL RC PRN (23:33)
[2017-09-06] VITALS (96 sets, daily range): BP systolic 85–155; BP diastolic 41–101
[2017-09-06] MEDS ORDERED: TYLENOL RC PRN
[2017-09-06] MEDS: DUONEB 0.5 MG-3 MG/3 ML SOLN IH SCH ×4 (02:23→20:36)
--- NOTE | 2017-09-06 02:30 | NUR ---
ORAL SECRETIONS FREQUENTLY SUCTIONED THICK, MUCOID ORAL SECRETIONS USING YAUNKER. PATIENT SHOUTS FOR HELP EVERY TIME HE NEEDS TO EXPECTORATE PHLEGM. ORAL CARE DONE. TOLERATED WELL.
--- NOTE | 2017-09-06 03:00 | NUR ---
PT REMOVED HIS O2 CANNULA AND PULSE OXIMETER PROBE. ABLE TO PUT BACK THE NASAL CANNULA IN PLACE AND NEW OXIMETER PROBE. PT REMAIN QUIET WHILE HE IS SLOWLY ATTEMPTING TO REMOVE HIS TUBINGS OFF AGAIN. SECURED IV SITE WITH TRANSPORE.
[2017-09-06] MEDS: TORADOL IV PRN ×3 (03:15→23:03)
[2017-09-06] MEDS: NS 1000ML 1,000 ML IV SCH ×3 (03:18→20:28)
--- NOTE | 2017-09-06 03:18 | NUR ---
AGITATION PATIENT STARTED REMOVING HIS NASAL CANNULA AND PULSE OXIMETER PROBE. STATED THAT HE IS NOT SICK AND HE DOESN'T NEED TO HAVE OXYGEN ON. EXPLAINED THE NEED FOR CONTINUOS MONITORING. PT STARTED SHOUTING "IT IS DONE. I AM NOT SICK. NO!" ATTEMPTED TO PLACED O2 CANNULA AND/OR PULSE OXIMETER PROBE BUT TO NO AVAIL. HR REMAIN CONSISTENT BET. 115-119 BPM. NO NASAL FLARING OR USE OF OTHER ACCESSORY MUSCLES. SEE EMAR. CLOSELY OBSERVED.
--- NOTE | 2017-09-06 03:53 | NUR ---
KULWANT CARE ADULT BRIEF IS SOAKED. KULWANT CARE DONE. CHANGED TO NEW BRIEF PER PATIENT'S REQUEST. ASSISTED PATIENT TO REPOSITION IN BED. SUCTIONED ORAL SECRETIONS. PLACED PULSE OXIMETER PROBE TO RIGHT FOOT. EXPLAINED THE NEED TO HAVE ALL HIS MONITORING LEADS IN PLACE AT ALL TIMES. PT STARTED TO CALM DOWN AND ALLOWED ME AND MARCIE RN TO PUT BACK ALL HIS TELEMETRY LEADS AND HAVE HIM REPOSITION IN POSITION OF COMFORT. COVERED PATIENT WITH EXTRA BLANKET PER HIS REQUEST. COMFORTABLE.
--- NOTE | 2017-09-06 05:55 | NUR ---
REFUSED COMPLETE BED BATH. PATIENT IS COMFORTABLE. HR 104-106 BPM.
--- NOTE | 2017-09-06 06:46 | NUR ---
ENDORSED PATIENT TO AM SHIFT
--- NOTE | 2017-09-06 07:00 | NUR ---
REPORT RECEIVED FROM Kate JUAREZ RN. ASSUMED CARE OF PATIENT.
[2017-09-06] MEDS: NICOTINE 14MG PATCH TD SCH (09:45)
[2017-09-06] MEDS: PEPCID IV SCH ×2 (09:45→20:28)
--- NOTE | 2017-09-06 10:00 | NUR ---
MALACHI CALLAWAY AT BEDSIDE TO CONDUCT SPEECH EVALUATION.
--- NOTE | 2017-09-06 10:50 | NUR ---
WET BRIEF PATIENT GIVEN BED BATH, PADS, BRIEF AND LINENS CHANGED.
[2017-09-06] MEDS: PLAVIX PO SCH (11:19)
[2017-09-06] MEDS: THIAMINE HCL PO SCH (11:19)
[2017-09-06] MEDS: ASPIRIN EC PO SCH (11:19)
[2017-09-06] MEDS: FOLIC ACID PO SCH (11:20)
[2017-09-06] MEDS: KEPPRA PO SCH ×3 (11:20→20:28)
[2017-09-06] MEDS: LIPITOR PO SCH (11:20)
[2017-09-06] MEDS: ARICEPT PO SCH (11:20)
[2017-09-06] MEDS: MYSOLINE PO SCH ×2 (11:21→20:28)
[2017-09-06] MEDS: BETAPACE PO SCH ×2 (11:21→20:28)
[2017-09-06] MEDS: PREVALITE PACKET PO SCH (11:21)
[2017-09-06] MEDS ORDERED: OYSTER SHELL 500-VIT D3 200 TB ONE (11:25)
[2017-09-06] MEDS ORDERED: NS 100ML 100 ML IV ONE (11:28)
[2017-09-06] MEDS ORDERED: ZOSYN 3.375 GRAM VIAL IV ONE (11:28)
[2017-09-06] MEDS: ZOSYN 3.375 GM/50 ML 50 ML IV SCH ×2 (11:30→19:35)
[2017-09-06] MEDS: OYSTER SHELL 500-VIT D3 200 TB PO SCH (11:35)
--- NOTE | 2017-09-06 14:00 | NUR ---
WET BRIEF BRIEF AND LINENS CHANGED. PATIENT CLEANED. GIVEN NEW GOWN.
--- NOTE | 2017-09-06 15:30 | NUR ---
PATIENT ATTEMPTING TO GET OUT OF BED. PATIENT STATES HE WANTS TO GO OUTSIDE AND SMOKE WITH EVERY ONE ELSE. PATIENT REMINDED THAT HE IS IN THE HOSPITAL AND NOT THE ALF AND SMOKING IS NOT PERMITTED AT THE HOSPITAL. PATIENT HELPED BACK TO BED.
--- NOTE | 2017-09-06 17:30 | NUR ---
NEW 20G I.V. INSERTED INTO R FA USING STERILE TECHNIQUE BY STUDENT NURSE So PINZON UNDER RN SUPERVISION X 1 ATTEMPT. I.V. FLUSHES. NS INFUSING @ 125ML/HR.
[2017-09-06] MEDS: LOVENOX SQ SCH (18:25)
--- NOTE | 2017-09-06 18:41 | NUR ---
REPORT GIVEN TO ONCOMING SHIFT. RELINQUISHED CARE OF PATIENT.
--- NOTE | 2017-09-06 18:45 | NUR ---
RECEIVED PATIENT FROM AM SHIFT FEBRILE TEMP 102.5 AXILLARY. REFUSED TO REMOVE OR DECREASE NUMBER OF BLANKETS IN BED. PATIENT STATED THAT HE FEELS COLD. TSB DONE. CHANGED TO NEW ADULT BRIEF. NOTED SCANTY AMOUNT OF BROWN DRY STOOL AROUND ANAL AREA. OFFERED COOL FLUIDS- HONEY THICKENED CONSISTENCY. ABLE TO TOLERATED 118 ML OF HIS HONEY THICKENED TEA FROM HIS DINNER TRAY. TOLERATED WELL. ASSUMED CARE. SEE ASSESSMENT.
--- NOTE | 2017-09-06 19:00 | NUR ---
PATIENT PULLED OUT HIS IV, TUBINGS, TELEMETRY LEADS AND ATTEMPTING TO GET OUT BED STATED THAT HE WANTED TO GO TO THE [facility] TO SMOKE. REORIENTED TO TIME AND PLACE. ENCOURAGED TO CALM DOWN. CHANGED GOWN, BED LINENS, CONNECTED ALL TELEMETRY LEADS AND PULSE OXIMETER. COVERED RIGHT FOREARM IV SITE WITH COTTON BALL AND MICROPORE TO STOP BLEEDING FROM IV SITE THAT WAS PULLED. QUICK SPONGE BATH DONE. REPOSITIONED PATIENT TO THIS COMFORTABLE POSITION. BED ALARMS ON. CLOSELY MONITORED. USED LEFT FOREARM SITE TO INFUSE IV FLUID.
[2017-09-06] MEDS: TYLENOL RC PRN (19:34)
[2017-09-06] MEDS: REMERON PO SCH (20:28)
--- NOTE | 2017-09-06 21:00 | NUR ---
PATIENT REQUESTED FOR DR PEPPER AND ORANGE JUICE HONEY THICKENED BOTH DR PEPPER AND ORANGE JUICE. ABLE TO SWALLOW WITHOUT DIFFICULTY. NO COUGHING OR GAGGING EPISODES NOTED. ABLE TO TAKE CRUSHED MEDICINE WITH THICKENED WATER WITH EASE. ORAL CARE RENDERED.
[2017-09-07] VITALS (20 sets, daily range): BP systolic 87–162; BP diastolic 46–84
--- NOTE | 2017-09-07 00:22 | NUR ---
CHANGED ADULT BRIEF NOTED PATIENT STARTED GETTING IRRITABLE. REFUSED OFFERED FLUIDS. CHECKED PATIENT IF BRIEF IS SOAKED. NOTED BRIEF IS MODERATELY SOAKED. INFORMED PATIENT THAT HE WILL BE CLEANED AND CHANGED. FOLLOWS COMMAND ACCORDINGLY. VERY COOPERATIVE. ASSISTED PATIENT TO REPOSITION SELF IN BED. DENIED ANY NEEDS OR CONCERNS. PATIENT IS QUIET AND VERY COMFORTABLE AFTER
[2017-09-07] MEDS: DUONEB 0.5 MG-3 MG/3 ML SOLN IH SCH ×3 (02:32→21:07)
--- NOTE | 2017-09-07 03:30 | NUR ---
FOR TRANSFER TO [facility]. CHECK TEMPERATURE. STILL FEBRILE AT 100.1 AXILLARY. SEE EMAR FOR MEDS. CHECKED ADULT BRIEF, STILL DRY AND INTACT. INFORMED PATIENT RE: TRANSFER. AMENABLE.
[2017-09-07] MEDS: ZOSYN 3.375 GM/50 ML 50 ML IV SCH ×3 (03:31→21:08)
[2017-09-07] MEDS: NS 1000ML 1,000 ML IV SCH ×3 (03:33→22:32)
[2017-09-07] MEDS: TYLENOL RC PRN (03:39)
--- NOTE | 2017-09-07 03:50 | NUR ---
TRANSFERRED TO [facility] RM 312 TRANSPORTED VIA BED WITH O2 AT 3L VIA NASAL CANNULA. ASSISTED PATIENT TO TRANSFER FROM BED TO BED. RESUMED IV FLUIDS. REPORT GIVEN TO ZENIA BARRIOS.
[2017-09-07 07:04] LABS: BASOPHIL % 0.2 % (0.0-0.2); EOSINOPHIL # 0.2 10^3/uL (0.0-0.2); EOSINOPHIL % 1.9 % (0.0-5.0); HEMOGLOBIN 8.7 g/dL (13.9-16.3); LYMPHOCYTES # 1.9 10^3/uL (1.0-4.8); LYMPHOCYTES % 23.2 % (24.0-44.0); MEAN CELL HGB 36.1 pg (26-34); MEAN CELL HGB CONCENTRATION 34.3 g/dL (33-37); MEAN CORP VOLUME 105.4 fL (78-100); MEAN PLATELET VOLUME 9.5 fL (7.8-11.0); MONOCYTES # 0.5 10^3/uL (0.3-0.8); MONOCYTES % 6.4 % (5.0-12.0); NEUTROPHIL # 5.6 10^3/uL (1.8-7.7); NEUTROPHILS % 68.1 % (41.0-85.0); RED CELL DISTRIBUTION WIDTH 12.9 % (11.5-14.5); WHITE BLOOD CELL 8.3 10^3/uL (4.5-11.0)
[2017-09-07 07:23] LABS: CALCIUM 7.7 mg/dL (8.4-10.5); CARBON DIOXIDE 20.7 mmol/L (20.0-32)
[2017-09-07] MEDS: ASPIRIN EC PO SCH (08:20)
[2017-09-07] MEDS: OYSTER SHELL 500-VIT D3 200 TB PO SCH (08:20)
[2017-09-07] MEDS: PLAVIX PO SCH (08:20)
[2017-09-07] MEDS: THIAMINE HCL PO SCH (08:20)
[2017-09-07] MEDS: KEPPRA PO SCH ×3 (08:22→21:00)
[2017-09-07] MEDS: MYSOLINE PO SCH ×2 (08:22→21:00)
[2017-09-07] MEDS: NICOTINE 14MG PATCH TD SCH (08:22)
[2017-09-07] MEDS: FOLIC ACID PO SCH (08:22)
[2017-09-07] MEDS: PREVALITE PACKET PO SCH (08:22)
[2017-09-07] MEDS: PEPCID IV SCH ×2 (08:22→21:00)
[2017-09-07] MEDS: ARICEPT PO SCH (08:22)
[2017-09-07] MEDS: BETAPACE PO SCH ×2 (08:23→21:00)
[2017-09-07] MEDS: LIPITOR PO SCH (08:23)
--- NOTE | 2017-09-07 08:36 | NUR ---
Patient is on aspiration precautions. HOB up straight for meal and then patient requested to have HOB flat. Patient compliant with keeping HOB elevated for 15 minutes following PO intake.
--- NOTE | 2017-09-07 12:35 | NUR ---
Patient only ate a few bites of lunch tray and then refused the rest of the meal. Patient has pillow case with green mucous, and became very upset when this nurse changed the linens. Patient was yelling at nurse and physically pushed nurse away. Patient kindly reminded of boundaries. Currently resting in room with door open. Will monitor.
--- NOTE | 2017-09-07 16:00 | NUR ---
Patient attempted to exit bed, staff responded to bed alarm. Stated it was time to go out for his smoke and have juice and coffee. Patient was given juice thickened and easily calmed.
--- NOTE | 2017-09-07 17:43 | NUR ---
Patient refused all dinner for both TAP OUT OPERATOR and nurse. Was able to assist with one container of pudding.
--- NOTE | 2017-09-07 20:50 | PNH ---
DATE: 09/04/2017 SUBJECTIVE: He is not able to swallow well due to dysphagia. He denies any pain. He just wants to cover up and complains of chills. OBJECTIVE: VITAL SIGNS: T-max last 24 hours 100.8, pulse of 107, respiratory rate 22, blood pressure 117/64 and O2 saturation 99% on 2 liters nasal cannula. GENERAL: He is alert, chronic ill-appearing gentleman. HEENT: Pupils equal, round, reactive to light. Sclerae are anicteric. Oropharynx is clear. Mucous membranes are moist. NECK: Supple, no lymphadenopathy. CARDIOVASCULAR: At time of exam, was tachycardic, regular rhythm. LUNGS: Decreased at bases, mild upper respiratory congestion, no wheezing. ABDOMEN: Soft. Bowel sounds present, nontender to palpation. EXTREMITIES: No cyanosis, clubbing or significant edema. NEUROLOGIC: Grossly nonfocal. LABORATORY DATA: CBC: White count 11.0, hemoglobin 12.2 and platelets 226. Differential: 77% neutrophils, 20% lymphocytes, 2% monocytes. Sodium 138, potassium 4.4, chloride 105, CO2 is 21, BUN 21, creatinine 1.76, glucose is 93, calcium 7.6. ASSESSMENT AND PLAN: The patient is a 67-year-old man here with aspiration pneumonia with acute renal failure secondary to acute tubular necrosis with mild rhabdomyolysis, advanced dementia. 1. Speech therapy has been consulted. He is n.p.o. for now. We will attempt to give other medications via IV form if possible. Continue IV fluid hydration for the renal failure. 2. Appropriate p.r.n. pain and nausea medications. 3. DVT prophylaxis with Lovenox. 4. Nicotine for smoking cessation. Time spent on 09/04/2017 is 35 minutes. Brennen Bustamante MD DR: TED/gail JOB# [id number]
[2017-09-07] MEDS: REMERON PO SCH (21:00)
[2017-09-07] MEDS: LOVENOX SQ SCH (21:03)
--- NOTE | 2017-09-07 21:13 | PNH ---
DATE: 09/05/2017 SUBJECTIVE: He still has difficulty swallowing. He still does not want to eat and mostly complains of being chills and wants to cover up. He was seen by speech therapy. No other acute events overnight. OBJECTIVE: VITAL SIGNS: T-max last 24 hours 100.9, pulse of 119, respiratory rate 28, blood pressure 132/78 and O2 saturation 95% on 5 liters nasal cannula. GENERAL: He is arousable, chronic ill-appearing gentleman. HEENT: Pupils equal, round, reactive to light. Sclerae are anicteric. Oropharynx is clear. Mucous membranes are moist. NECK: Supple, no lymphadenopathy. CARDIOVASCULAR: At time of exam, was tachycardic, regular rhythm. LUNGS: Decreased at bases, particularly in the right base. No wheezing, shallow inspiratory effort. ABDOMEN: Soft. Bowel sounds are present, nontender to palpation. EXTREMITIES: No cyanosis, clubbing or significant edema. NEUROLOGIC: Grossly nonfocal. LABORATORY DATA: CBC: White count 8.0, hemoglobin 10.9 and platelets 188. Differential: 73% neutrophils, 25% lymphocytes, 2% monocytes. Sodium 136, potassium 4.6, chloride 106, CO2 17, glucose is 97, calcium 7.9, BUN 19, creatinine 1.3. ASSESSMENT AND PLAN: The patient is a 67-year-old man here with dementia and dysphagia with severe protein calorie malnutrition, resolving acute renal failure secondary to acute tubular necrosis and anemia due to chronic disease. 1. We will continue current IV antibiotics. 2. Speech therapy is following. We will crush medications and give if tolerated. 3. Nebulizer treatments scheduled and as needed. 4. Appropriate p.r.n. pain and nausea medications. 5. DVT prophylaxis with Lovenox. Time spent 09/05/17 is 35 minutes. Brennen Bustamante MD DR: TED/gail JOB# [id number] [place]
[2017-09-08 01:18] VITALS: BP 85/47
[2017-09-08] MEDS: DUONEB 0.5 MG-3 MG/3 ML SOLN IH SCH ×3 (03:11→14:26)
[2017-09-08] MEDS: NS 1000ML 1,000 ML IV SCH ×3 (04:27→19:20)
[2017-09-08] MEDS: ZOSYN 3.375 GM/50 ML 50 ML IV SCH ×3 (04:27→19:21)
[2017-09-08 05:45] VITALS: BP 111/69
[2017-09-08] MEDS: TYLENOL PO PRN (05:56)
--- NOTE | 2017-09-08 06:11 | NUR ---
STATUS REASSESSED VITAL SIGNS, PT DEMONSTRATING SELF INFLICTED EPISODES OF TACHYPNEA, COACHED TO DEEP BREATHE AND RELAX, RESPIRATIONS REASSESSED AT 37 BREATHES A MINUTE, OXYGEN SATURATION 95% ON 3L NC. PT LAYING SUPINE IN BED, LOW LIGHT ENVIRONMENT, CALL LIGHT IN REACH.
--- NOTE | 2017-09-08 07:50 | NUR ---
Resp rate 36/minute. Patient is pale. Skin warm and dry. Patient denies pain, SOB, or any other concerns. Assessment completed.
--- NOTE | 2017-09-08 08:10 | NUR ---
UPDATE REGARDING DISCHARGE PLAN CM NOTIFIED DEVONTE IVET MORA OF [facility] REGARDING PATIENTS DISCHARGE PLAN AND NEED. ALONZO VISITED WITH HER REGARDING PTS MEDICAL STATUS/DECLINE DUE TO HIS ADVANCED DEMENTIA AND BEING UNABLE TO SWALLOW OR TOLERATE PO INTAKE DUE TO HIS DYSPHAGIA. CM ALSO VISITED WITH HER REGARDING A POSSIBLE HOSPICE CONSULT. DEVONTE STATED PT HAS A SISTER WHOM IS HIS POA AND UNDERSTANDS HIS DECLINE AND DISEASE PROCESS. SHE WOULD BE OPEN TO HOSPICE BUT @ THIS TIME PT IS MORE COMFORTABLE WITH THEIR THERAPY TEAM, SO PLAN FOR PT IS TO DISCHARGE BACK ON SNF SERVICES AND TRANSITION INTO HOSPICE ONCE SISTER IS READY, WELL EDUCATED AND APART OF PTS SNF PROCESS. CM/SS WILL REACH OUT TO PTS SISTER REGARDING ABOVE DOCUMENTATION.
--- NOTE | 2017-09-08 08:10 | NUR ---
Dr Headley notified of patient condition and has entered orders for labs at this time.
[2017-09-08 08:22] VITALS: BP 121/77
[2017-09-08 08:25] LABS: BASOPHIL % 0.2 % (0.0-0.2); EOSINOPHIL # 0.1 10^3/uL (0.0-0.2); EOSINOPHIL % 0.6 % (0.0-5.0); HEMOGLOBIN 8.8 g/dL (13.9-16.3); LYMPHOCYTES # 2.4 10^3/uL (1.0-4.8); LYMPHOCYTES % 27.2 % (24.0-44.0); MEAN CELL HGB CONCENTRATION 35.2 g/dL (33-37); MEAN PLATELET VOLUME 9.1 fL (7.8-11.0); MONOCYTES # 0.6 10^3/uL (0.3-0.8); MONOCYTES % 6.8 % (5.0-12.0); NEUTROPHIL # 5.7 10^3/uL (1.8-7.7); NEUTROPHILS % 64.7 % (41.0-85.0); RED CELL DISTRIBUTION WIDTH 12.7 % (11.5-14.5); WHITE BLOOD CELL 8.8 10^3/uL (4.5-11.0)
[2017-09-08 08:41] LABS: CALCIUM 7.5 mg/dL (8.4-10.5); CARBON DIOXIDE 17.8 mmol/L (20.0-32)
[2017-09-08] MEDS: PEPCID IV SCH ×2 (10:09→20:47)
[2017-09-08] MEDS: PREVALITE PACKET PO SCH (10:09)
[2017-09-08] MEDS: PLAVIX PO SCH (10:09)
[2017-09-08] MEDS: ARICEPT PO SCH (10:09)
[2017-09-08] MEDS: FOLIC ACID PO SCH (10:10)
[2017-09-08] MEDS: OYSTER SHELL 500-VIT D3 200 TB PO SCH (10:10)
[2017-09-08] MEDS: LIPITOR PO SCH (10:10)
[2017-09-08] MEDS: KEPPRA PO SCH ×3 (10:10→20:46)
[2017-09-08] MEDS: BETAPACE PO SCH ×2 (10:10→20:45)
[2017-09-08] MEDS: ASPIRIN EC PO SCH (10:10)
[2017-09-08] MEDS: MYSOLINE PO SCH ×2 (10:11→20:46)
[2017-09-08] MEDS: THIAMINE HCL PO SCH (10:12)
--- NOTE | 2017-09-08 10:34 | NUR ---
SISTER NOTIFIED CM REACHED OUT TO PTS SISTER CRISTOPHER @ [phone] PER [facility]'S RECOMMENDATIONS AND RECORDS. ALONZO VISITED WITH HER REGARDING PTS HOSPITAL ADMISSION VERSES CURRENT DECLINING MEDICAL STATUS. ALONZO ALSO VISITED WITH HER REGARDING CONVERSATION WITH DEVONTE MORA OF [facility]. ALONZO THEN EDUCATED HER ON SNF SERVICES VERSES HOSPICE SERVICES DUE TO BROTHERS CURRENT DECLINING MEDICAL STATUS. SHE STATED THAT NEITHER HER NOR HER SISTER HAVE POA OVER PT AND SINCE HIS DEMENTIA IS ADVANCING THEY HAVE NOT BEEN ABLE TO GET IT. SHE ALSO STATED THAT SHE HAS BEEN TIRING TO GET A HOLD OF HER SISTER BUT HAS BEEN UNABLE. CRISTOPHER DID VOICE CONCERN REGARDING HER SISTER BEING OVER HIS LIFE INSURANCE, BUT NOT CARING ANYTHING ABOUT HIS WELL BEING OR CURRENT HEALTH STATUS. CRISTOPHER STATED SHE THINKS HOSPICE EVENTUALLY WOULD BE BENEFICIAL BECAUSE SHE FEELS LIKE HER BROTHER WOULD NOT WANT TO CONTINUE LIVING LIKE THIS, HE IS ONLY LIVING FOR HIS CIGARETTES. SHE THEN STATED SHE WOULD BE UP TO HOSPITAL LATER THIS EVENING TO CONTINUE DISCUSSING PTS DISCHARGE PLAN AND NEED.
[2017-09-08 11:59] VITALS: BP 110/69
[2017-09-08] MEDS ORDERED: POTASSIUM CHLORIDE PO SCH (13:00)
--- NOTE | 2017-09-08 13:05 | PRM.PN ---
Subjective Subjective Date: Sep 08, 2017 Time: 12:55 Subjective Pt without acute changes Patient History: No Family History of: Alzheimer's disease Asthma Cerebrovascular disorder Chronic obstructive pulmonary disease Congestive heart failure Diabetes insipidus Diabetes mellitus Hypertension Parkinson's disease VTE VTE Risk Total Score: 2 VTE Risk Score VTE Risk: Score 0-1 = Low Risk (Aggressive mobilization; early ambulation; no VTE prophylaxis required) Score 2: Moderate Risk (Intermittent/Pneumatic Compression Device OR Lovenox/Heparin/Coumadin) Score 3-4: High Risk (Intermittent/Pneumatic Compression Device AND Lovenox/Heparin/Coumadin) Score > or =5: Highest Risk (Intermittent/Pneumatic Compression Device AND Lovenox/Heparin/Coumadin) Antico:Hep/LMWH/Coum/Xarelto: Yes Mechanical device ordered: Yes Review of Systems Constitutional: Fever Eyes: No: Vision change ENT: No: Ear pain, Nose pain, Nose discharge Respiratory: No: Cough Cardiovascular: No: Chest Pain Gastrointestinal: No: Nausea, Vomiting Skin: No: Jaundice, Bruising Neurological: Weakness, No: Seizures Allergies: Coded Allergies: No Known Drug Allergies (Verified Allergy, Unknown, 06/27/16) Scheduled Aspirin (Aspir 81), 1 TAB PO DAILY, (Reported) Atorvastatin 20MG (Lipitor 20MG), 1 TAB PO DAILY, (Reported) Calcium Carbonate/Vitamin D3 (Calcium 500 + Vit D Caplet), 1 EACH PO DAILY, ( Reported) Cholestyramine/Aspartame (Cholestyramine Light Packet), 4 GM PO DAILY, (Reported ) Clopidogrel Bisulfate (Plavix), 1 TAB PO DAILY, (Reported) Donepezil Hcl (Donepezil Hcl), 1 TAB PO DAILY, (Reported) Folic Acid (Folic Acid), 1 TAB PO DAILY, (Reported) Levetiracetam (Keppra), 500 MG PO TID, (Reported) Mirtazapine (Remeron), 1 TAB PO HS, (Reported) Primidone (Primidone), 250 MG PO BID, (Reported) Sotalol Hcl (Sotalol), 1 TAB PO BID, (Reported) Thiamine Hcl (Thiamine Hcl), 100 MG PO DAILY, (Reported) Discontinued Medications Duloxetine Hcl (Cymbalta), 1 CAP PO DAILY, (Reported) Discontinued Reason: No Longer Taking Ferrous Sulfate (Iron), 325 MG PO DAILY, (Reported) Discontinued Reason: No Longer Taking Lorazepam (Ativan), 0.5 MG PO Q4 PRN for ANXIETY, (Reported) Discontinued Reason: No Longer Taking Quetiapine Fumarate (Seroquel), 2 TAB PO HS, (Reported) Discontinued Reason: No Longer Taking Objective Vitals and I/O Vital Sign - Last 24 Hours 09/07/17 09/07/17 09/07/17 09/07/17 14:36 14:37 14:37 15:21 Temp 98.4 Pulse 104 100 104 119 Resp 18 20 20 24 B/P (MAP) 162/84 (110) Pulse Ox 94 94 94 97 O2 Delivery Nasal Cannula O2 Flow Rate 2.00 FiO2 28 09/07/17 09/07/17 09/07/17 09/07/17 21:10 21:11 21:12 21:12 Pulse 122 122 131 Resp 18 18 24 24 Pulse Ox 93 93 98 97 O2 Delivery Nasal Cannula O2 Flow Rate 3.00 FiO2 32 09/07/17 09/07/17 09/08/17 09/08/17 21:13 21:17 01:18 03:12 Temp 98.8 97.9 Pulse 118 98 96 Resp 23 B/P (MAP) 137/84 (101) 85/47 (60) Pulse Ox 98 98 97 O2 Delivery Nasal Cannula Nasal Canula Room Air O2 Flow Rate 2.00 09/08/17 09/08/17 09/08/17 09/08/17 05:45 08:12 08:22 08:52 Temp 101.3 98.0 Pulse 112 108 89 Resp 45 22 16 B/P (MAP) 111/69 (83) 121/77 (92) Pulse Ox 89 92 92 O2 Delivery Nasal Canula Nasal Cannula Nasal Canula Nasal Cannula O2 Flow Rate 1.00 3.00 FiO2 32 09/08/17 11:59 Temp 97.3 Pulse 108 Resp 20 B/P (MAP) 110/69 (83) Pulse Ox 99 O2 Delivery Nasal Canula Intake and Output 09/07/17 09/07/17 09/08/17 15:00 23:00 07:00 Intake Total 55 ml 2372 ml Balance 55 ml 2372 ml General: No acute distress HEENT: Atraumatic, Mucous membr. moist/pink Neck: Supple, No JVD, No LAD Lungs: Clear to auscultation, Normal air movement Heart: Normal S1, Normal S2 Abdomen: Normal bowel sounds, Soft Extremities: No clubbing, No cyanosis Neuro: Normal speech Psych/Mental Status: Mental status NL, Mood NL Medication Reconciliation Scheduled Aspirin (Aspir 81), 1 TAB PO DAILY, (Reported) Atorvastatin 20MG (Lipitor 20MG), 1 TAB PO DAILY, (Reported) Calcium Carbonate/Vitamin D3 (Calcium 500 + Vit D Caplet), 1 EACH PO DAILY, ( Reported) Cholestyramine/Aspartame (Cholestyramine Light Packet), 4 GM PO DAILY, (Reported ) Clopidogrel Bisulfate (Plavix), 1 TAB PO DAILY, (Reported) Donepezil Hcl (Donepezil Hcl), 1 TAB PO DAILY, (Reported) Folic Acid (Folic Acid), 1 TAB PO DAILY, (Reported) Levetiracetam (Keppra), 500 MG PO TID, (Reported) Mirtazapine (Remeron), 1 TAB PO HS, (Reported) Primidone (Primidone), 250 MG PO BID, (Reported) Sotalol Hcl (Sotalol), 1 TAB PO BID, (Reported) Thiamine Hcl (Thiamine Hcl), 100 MG PO DAILY, (Reported) Discontinued Medications Duloxetine Hcl (Cymbalta), 1 CAP PO DAILY, (Reported) Discontinued Reason: No Longer Taking Ferrous Sulfate (Iron), 325 MG PO DAILY, (Reported) Discontinued Reason: No Longer Taking Lorazepam (Ativan), 0.5 MG PO Q4 PRN for ANXIETY, (Reported) Discontinued Reason: No Longer Taking Quetiapine Fumarate (Seroquel), 2 TAB PO HS, (Reported) Discontinued Reason: No Longer Taking Course Blood Pressure Systolic: 110 Blood Pressure Diastolic: 69 Blood Pressure Mean: 83 Assessment/Plan Assessment/Plan Assessment/Plan 67 yo male with aspiration pneumonia, hypoka;emia, dementia - replace K po - follow clinically - cont IV zosyn - speech following Problems: Patient History: No Family History of: Alzheimer's disease Asthma Cerebrovascular disorder Chronic obstructive pulmonary disease Congestive heart failure Diabetes insipidus Diabetes mellitus Hypertension Parkinson's disease BE SMALL MD Sep 08, 2017 13:05
--- NOTE | 2017-09-08 14:37 | NUR ---
Non blanchable area of redness to left hip assessed at this time. Patient has been lying on left side continually even with encouragement to do otherwise. Pillow placed under hip at this time.
[2017-09-08 15:33] VITALS: BP 122/70
[2017-09-08] MEDS: KLOR-CON 10 PO SCH ×2 (16:30→20:47)
--- NOTE | 2017-09-08 18:09 | NUR ---
Throughout the day patient has repeatedly called out and repeatedly pushed the call light. As the afternoon has progressed the yelling out has steadily increased. Provider notified that patient had not slept last night per nurse report and has not slept this day.
[2017-09-08] MEDS ORDERED: REMERON PO SCH (21:00)
[2017-09-08] MEDS ORDERED: LOVENOX SQ SCH (21:00)
[2017-09-08 21:03] VITALS: BP 153/103
--- NOTE | 2017-09-08 22:50 | PNH ---
DATE: 09/06/2017 SUBJECTIVE: He is tolerating crushed medications orally. He still has a very poor functional status, mainly complains of being cold. OBJECTIVE: VITAL SIGNS: T-max last 24 hours 102.5, pulse of 107, respiratory 30, blood pressure 141/70 and O2 saturation 95% on 4 liters. GENERAL: He is alert, chronic ill-appearing gentleman. HEENT: Pupils equal, round, reactive to light. Sclerae is anicteric. Oropharynx is clear. Mucous membranes are slightly dry. NECK: Supple, no lymphadenopathy. CARDIOVASCULAR: At time of exam, was tachycardic, regular rhythm. LUNGS: Bilateral coarse breath sounds at the bases, right greater than left. No wheezing. ABDOMEN: Soft. Bowel sounds are present, nontender to palpation. EXTREMITIES: No cyanosis, clubbing or significant edema. NEUROLOGIC: Grossly nonfocal. ASSESSMENT AND PLAN: The patient is a 67-year-old man here with right lower lobe pneumonia due to aspiration pneumonia with clinical criteria consistent with sepsis with acute hypoxic respiratory failure and advanced dementia. 1. Continue IV antibiotics. 2. Speech therapy is following. 3. Crushed medications as tolerated. 4. DVT prophylaxis with Lovenox. 5. Seizure precautions until Keppra is able to be given. Time spent on 09/06/2017 is 25 minutes. Brennen Bustamante MD DR: TED/gail JOB# [id number]
--- NOTE | 2017-09-08 22:52 | PNH ---
DATE: 09/07/2017 SUBJECTIVE: No significant change. His vital signs are improved. He still complains of being cold, but otherwise nothing new overnight. OBJECTIVE: VITAL SIGNS: T-max last 24 hours 100.6, pulse of 119, respiratory rate 24, blood pressure 162/84 and O2 saturation 93% on 3 liters nasal cannula. GENERAL: He is alert, chronic ill-appearing gentleman. HEENT: Pupils equal, round, reactive to light. Sclerae are anicteric. Oropharynx is clear. Mucous membranes are moist. NECK: Supple, no lymphadenopathy. CARDIOVASCULAR: At time of exam, was tachycardic, regular rhythm. LUNGS: Coarse breath sounds at the right base. No wheezing. ABDOMEN: Soft. Bowel sounds are present, nontender to palpation. EXTREMITIES: No cyanosis, clubbing or significant edema. NEUROLOGIC: Grossly nonfocal. LABORATORY DATA: Sodium 139, potassium 3.6, chloride 108, CO2 is 21, BUN 15, creatinine 1.1, glucose is 96, calcium 7.7, total bilirubin 0.7, AST 50, ALT is 30, alkaline phosphatase 64, total protein 6.0, albumin 1.9. CBC: White count 8.3, hemoglobin 8.7 and platelets 170. Differential: 68% neutrophils, 23% lymphocytes, 6% monocytes. ASSESSMENT AND PLAN: The patient is a 67-year-old man here with aspiration pneumonia, advanced dementia with dysphagia, severe protein calorie malnutrition, anemia due to chronic disease. 1. Encourage increased nutrition. Speech therapy is following. 2. Continue current home medications. 3. IV antibiotics. 4. O2 protocol. Time spent on 09/07/2017 is 25 minutes. Brennen Bustamante MD DR: TED/gail JOB# [id number]
[2017-09-09] VITALS (7 sets, daily range): BP systolic 101–168; BP diastolic 58–106
[2017-09-09] MEDS: NS 1000ML 1,000 ML IV SCH (03:32)
[2017-09-09] MEDS: ZOSYN 3.375 GM/50 ML 50 ML IV SCH ×2 (03:34→11:56)
[2017-09-09 05:25] LABS: CALCIUM 7.7 mg/dL (8.4-10.5); CARBON DIOXIDE 15.9 mmol/L (20.0-32)
--- NOTE | 2017-09-09 05:58 | NUR ---
notified Dr. Headley of pt's hrt rate and blood pressure. pt given morning betapace early. see eMAR
[2017-09-09] MEDS: BETAPACE PO SCH (05:59)
[2017-09-09] MEDS ORDERED: LOPRESSER ONE (06:56)
--- NOTE | 2017-09-09 07:00 | NUR ---
Dr. STACI Headley notified of patients VS. New orders received. Adm 5mg of Lopressor IVP per Dr. Headley. Will continue to monitor.
[2017-09-09] MEDS ORDERED: LOPRESSER IVP STA (07:07)
[2017-09-09] MEDS: DUONEB 0.5 MG-3 MG/3 ML SOLN IH SCH ×2 (08:24→13:04)
--- NOTE | 2017-09-09 08:25 | NUR ---
pt refused treatment at this time. Pt saturation low and respiratory rate increased. Tried to talk patient into taking treatment and discussed his condition and how it could help with oxygenation and make breathing easier. Patient still refused treatment. Informed patient to notify nurse if he changes his mind. Ankita notified. Addendum: 09/09/17 at 0828 by Ayaka Boothe RRT RT Amended: Links added.
[2017-09-09] MEDS ORDERED: CARDIZEM PO SCH (09:00)
[2017-09-09] MEDS ORDERED: KLOR-CON 10 PO SCH (09:00)
[2017-09-09] MEDS: PLAVIX PO SCH (09:26)
[2017-09-09] MEDS: ASPIRIN EC PO SCH (09:26)
[2017-09-09] MEDS: THIAMINE HCL PO SCH (09:26)
[2017-09-09] MEDS: OYSTER SHELL 500-VIT D3 200 TB PO SCH (09:26)
[2017-09-09] MEDS: FOLIC ACID PO SCH (09:27)
[2017-09-09] MEDS: KEPPRA PO SCH (09:27)
[2017-09-09] MEDS: LIPITOR PO SCH (09:28)
[2017-09-09] MEDS: PREVALITE PACKET PO SCH (09:28)
[2017-09-09] MEDS: MYSOLINE PO SCH (09:29)
[2017-09-09] MEDS ORDERED: ARICEPT ONE (09:37)
[2017-09-09] MEDS: ARICEPT PO SCH (09:43)
[2017-09-09] MEDS: PEPCID IV SCH (09:44)
--- NOTE | 2017-09-09 09:45 | NUR ---
STATUS Pt laying in bed, awake. Respirations labored and shallow. Respirations @ 32. Pt having difficulties coughing up phlegm. Pt suctioned and oral care provided. Will continue to monitor
--- NOTE | 2017-09-09 12:26 | NUR ---
STATUS Pt up in bed in a 90 degree angle. Respirations labored and shallow. Pt only ate 3 bites of food then patient refused to eat. Suctioned patient and provided oral care. Respirations @ 44. Notified Respiratory.
[2017-09-09] MEDS ORDERED: AMOX1TAB63 PO (13:40)
--- NOTE | 2017-09-09 14:20 | NUR ---
DISCHARGE Pt discharged. Gave discharge instructions to staff of [facility]. Staff has no questions or concerns @ this time. Pt transported off of unit via wheelchair by [facility] staff. Patient on 3.5 lpm via nc. O2sat of 94%. Respirations labored and shallow w/ respirations of 30 at time of discharge
--- NOTE | 2017-09-09 14:30 | NUR ---
UPDATE TO [facility] CM FAXED PTS UPDATED CLINICAL INFORMATION WITH DISCHARGE INSTRUCTIONS TO [facility]. CM ALSO NOTIFIED [facility] AND LEELA COPELAND RN TESTING MACHINE OPERATOR REGARDING PTS TENTATIVE DISCHARGE FOR TODAY. CM ALSO VISITED WITH HER REGARDING, PER DR. SMALL PT IS TO DISCHARGE BACK TO [facility] UNDER [facility] SERVICES AND IF NEEDED TRANSITION INTO HOSPICE SERVICES AT A LATER TIME WITH VERBAL UNDERSTANDING. LEELA STATED PT IS "OKAY" TO DISCHARGE BACK TO FACILITY TODAY ONCE MED SURG NURSING CALLS REPORT AND ARRANGES TRANSPORTATION TIME. NO FURTHER CM OR DISCHARGE NEEDS KNOWN @ THIS TIME.
--- NOTE | 2017-09-09 20:38 | DSH ---
DATE OF DISCHARGE: 09/09/2017 ADMITTING DIAGNOSES: Aspiration pneumonia with hypoxia and fever with dementia and history of coronary artery disease, hypertension, seizure disorder, and debilitation. DISCHARGE DIAGNOSES: Aspiration pneumonia with dysphagia, resolving, coronary artery disease, hypertension, seizure disorder, dementia, and debilitation. HOSPITAL COURSE: The patient is a 67-year-old gentleman who came in from [facility] with choking and having fever. X-ray did show an aspiration picture. He was started on IV Zosyn and was kept n.p.o. Speech therapy was consulted and they started him on honey thickened liquid diet and he has been doing okay with that. He has been refusing any kind of therapy and help in the hospital and he is requiring oxygen in the hospital. His latest labs from yesterday showed a white count of 8800, hemoglobin of 8.8 and platelet count of 153. Chemistry panel looked good with the potassium 4.7, BUN 12, creatinine 0.9. So, family came by and was talking about hospice care for him. So, at this time, he will be discharged back to [facility], resume his regular medications that will be crushed, diet per speech recommendations. I will ask PT, OT to evaluate him to see if he will be willing to do some therapy with him. If not, then the question is whether or not hospice will be called in. I going to put him on Augmentin 875 twice a day for 5 more days to complete a 10-day course for his aspiration pneumonia picture and we will have aspiration precautions at the alf with seizure precautions. Yolanda Headley MD DR: MARIE/gail JOB# [id number]
== END 2017-09-09 14:46 | disposition home or self-care (01) | DRG 871 ==
LOC: EDUNIT# 14:13 → ER 14:13 → EDBD 14:13 → ICU 16:42 → MS 09-07 04:23
PROVIDERS: ADMIT Internal Medicine; ATTEND Pediatrics
DX: A41.9 Sepsis, unspecified organism (principal); J96.01 Acute respiratory failure with hypoxia; N17.0 Acute kidney failure with tubular necrosis; J69.0 Pneumonitis due to inhalation of food and vomit; E43 Unspecified severe protein-calorie malnutrition; R13.10 Dysphagia, unspecified; M62.82 Rhabdomyolysis; I10 Essential (primary) hypertension; F03.90 Unspecified dementia, unspecified severity, without behavioral disturbance, psychotic disturbance, mood disturbance, and anxiety; D63.8 Anemia in other chronic diseases classified elsewhere; E78.5 Hyperlipidemia, unspecified; G40.909 Epilepsy, unspecified, not intractable, without status epilepticus; I25.10 Atherosclerotic heart disease of native coronary artery without angina pectoris; E87.6 Hypokalemia; Z68.21 Body mass index [BMI] 21.0-21.9, adult; Z79.899 Other long term (current) drug therapy; Z79.82 Long term (current) use of aspirin
CPT/HCPCS: 36415; 36600; 70450; 71045; 76770; 80048; 80053; 81000; 82550; 82553; 82803; 83605; 83735; 83880; 84484; 85025; 85379; 85610; 85730; 86710; 87040; 87086; 92526; 92610; 93005; 94640; 96360; 96361; 99291; J1170; J1650; J1885; J1956; J2543; J3480; J3490; J7030; J7050; J7620; G8996-CM; G8997-CI

== ENCOUNTER → 2017-09-04 | Outpatient (CLI) | payer MEDICARE, MEDICAID ==
[~2017-09-04] MED LIST: ASPI-484 PO; ATOR20TA PO; CHOL4PAC PO; CLOP75TA52 PO; DOCU-123 PO; DONE10TA7 PO; DULO30CA2 PO; ESCI10TA10 PO; FERR325C PO; FERR325T59 PO; FOLI1TAB21 PO; LEVAQUIN 150 ML IV ONE; LEVE500T54 PO; LORA-447 PO; MIRT15TA PO; NS 1000ML 1,000 ML ONE; OMEP20TA9 PO; PRIM250T PO; QUET50TA5 PO; SOTA80TA PO; [UNRECOGNIZED DRUG - CODE] PO; [UNRECOGNIZED DRUG - CODE] PO
[2017-09-04 11:55] LABS: BASOPHIL % 0.4 % (0.0-0.2); LYMPHOCYTES # 2.1 10^3/uL (1.0-4.8); LYMPHOCYTES % 19.2 % (24.0-44.0); MEAN CELL HGB 35.4 pg (26-34); MEAN CELL HGB CONCENTRATION 34.1 g/dL (33-37); MEAN CORP VOLUME 103.5 fL (78-100); MEAN PLATELET VOLUME 9.9 fL (7.8-11.0); MONOCYTES # 0.2 10^3/uL (0.3-0.8); NEUTROPHIL # 8.4 10^3/uL (1.8-7.7); NEUTROPHILS % 78.2 % (41.0-85.0); RED CELL DISTRIBUTION WIDTH 12.9 % (11.5-14.5); WHITE BLOOD CELL 10.7 10^3/uL (4.5-11.0)
== END | disposition home or self-care (01) ==
LOC: EDBD → NPLAB 10:52
PROVIDERS: ATTEND Family Medicine
DX: J06.9 Acute upper respiratory infection, unspecified (principal)
CPT/HCPCS: 85025; J1956; J7030

== ENCOUNTER 2017-09-09 15:10 | Emergency (ER) | payer MEDICARE, MEDICAID ==
[~2017-09-09] VITALS: Ht 185.4 cm; Wt 66.0 kg
[~2017-09-09 15:10] MED LIST changes: +AMOX1TAB63 PO; +ASPI-484 PO; +ATOR20TA PO; +CLOP75TA52 PO; +MIRT15TA PO; +SOTA80TA PO
[2017-09-09] MEDS ORDERED: MAGNESIUM SULFATE IV ONE (15:11)
[2017-09-09] MEDS ORDERED: EPINEPHRINE IV ONE (15:11)
[2017-09-09] MEDS ORDERED: SODIUM BICARBONATE IV ONE (15:11)
--- NOTE | 2017-09-09 15:12 | NUR ---
code/arrival code team here upon arrival patient arrived via ems cpr in progress patient has kingair in place bagging in process by ems patient transferred to bed
--- NOTE | 2017-09-09 15:13 | NUR ---
cpr cpr resumed by Selena Keating EMT/ patient has IO to left chin, ns bolus infusing upon arrival pressure bag applied at this time pulse checked via femoral and corotid no pulse noted by dr herman abd pads applied patient placed on monitor lab attempted blood draw attempt unsuccessful
--- NOTE | 2017-09-09 15:15 | NUR ---
code/medication 1 amp epi adm via io compressions stopped femoral, radial, and corotid pulses checked no pulse noted
--- NOTE | 2017-09-09 15:16 | NUR ---
medications/code compressions stopped pulse checked via femoral and corotid artery no pulses noted 1amp bicarb administered flip moreno rn now doing compressions
--- NOTE | 2017-09-09 15:19 | NUR ---
medications 1 amp epi adm via io adm by Siddharth Keating EMT resumed compressions at this time
--- NOTE | 2017-09-09 15:21 | NUR ---
code compressions stopped pulse checked via corotid and femoral no pulse noted Joaquina Anaya RN administering compressions at this time
--- NOTE | 2017-09-09 15:23 | NUR ---
code 1 amp epi adm via io by Siddharth Garcia RN Compressions stopped pulse checke, no pulses noted Selena Ashraf EMT resumed compressions at this time
--- NOTE | 2017-09-09 15:25 | NUR ---
code compressions stopped pulses checked via corotid and femoral no pulses noted dr batsheva aceves auscultating with stethescope no heartbeat auscultated
--- NOTE | 2017-09-09 15:26 | NUR ---
pupils pupils remain unresponsive checked by dr herman
--- NOTE | 2017-09-09 15:27 | NUR ---
time of Dr Meza called code Time of 1463
--- NOTE | 2017-09-09 15:28 | NUR ---
postmordem care postmordem care adm patient covered with sheet airway and io remain in place
--- NOTE | 2017-09-09 15:35 | NUR ---
rhoda on phone with rhoda
--- NOTE | 2017-09-09 15:39 | NUR ---
MARK CALLED [facility] FOR TIRE CURER TO BE NOTIFIED OF IN ER 1
--- NOTE | 2017-09-09 15:44 | NUR ---
SISTER: [facility] NOTIFIED CM/SS THAT "PT HAD BECAME ASYSTOLIC IN THE PARKING LOT AND CPR WAS INITIATED". CM/SS ATTEMPTED TO NOTIFY PT'S NEXT OF KIN CRISTOPHER NUMEROUS TIMES AT [phone] WITHOUT BEING ABLE TO REACH HER. SS LEFT MESSAGE FOR SISTER TO CALL ER REGARDING BROTHER AT [phone]. [facility] NOTIFIED OF PT'S PASSING AND THAT WE HAD NOT BEEN ABLE TO GET A HOLD OF SISTER. DENIS LUX STATED THEY WERE STILL TRYING TO GET A HOLD OF HER THEMSELVES. NO FURTHER SS NEEDS NOTED AT THIS TIME.
--- NOTE | 2017-09-09 16:09 | NUR ---
REVIEW SPECIALIST JUDGE COE IN THE ED AT THIS TIME
--- NOTE | 2017-09-09 16:36 | NUR ---
family patient sister with field handyman requested not to see patient
--- NOTE | 2017-09-09 16:39 | NUR ---
parth flores here to get patient
--- NOTE | 2017-09-09 16:50 | NUR ---
departure patient taken to home
[2017-09-09 17:02] VITALS: BP 142/63
== END 2017-09-09 16:50 | disposition expired ==
LOC: ER 15:10 → EDBD 15:10 → ER 16:50
DX: I46.9 Cardiac arrest, cause unspecified (principal)
CPT/HCPCS: 92950; 99291; J0171; J3475; 99285; J3490